=== PATIENT | male | born 2000 | race African-American/Black ===

== ENCOUNTER 2022-05-30 08:55 | Outpatient (CLI) | payer BC, OTHER ==
[2022-05-29 23:45] LABS: CHLAMYDIA TRACHOMATIS DNA NEGATIVE (NEGATIVE); NEISSERIA GONORRHOEAE DNA NEGATIVE (NEGATIVE)
[2022-05-31 03:08] LABS: HCV AB 0.1 s/co ratio (0.0-0.9); RPR Non Reactive (Non Reactive)
[2022-05-31 05:10] LABS: HIV SCREEN 4TH GENERATION Non Reactive (Non Reactive)
[2022-06-01 14:07] LABS: HSV IGM I/II COMBINATION <0.91 Ratio (0.00-0.90)
== END 2022-05-30 08:56 | disposition home or self-care (01) ==
LOC: LAB.N 08:55
PROVIDERS: ATTEND Family Medicine
DX: Z20.2 Contact with and (suspected) exposure to infections with a predominantly sexual mode of transmission (principal)
CPT/HCPCS: 36415; 86592; 86695; 86696; 86803; 87389; 87491; 87591; 87661